=== PATIENT | female | born 1980 | race American Indian/Alaskan Native ===

== ENCOUNTER 2017-07-24 15:09 | Emergency (ER) | payer SELFPAY ==
[2017-07-24 15:21] VITALS: BP 121/77
[2017-07-24 15:58] LABS: Bacteria,Urine 1+ /HPF (Negative); Bilirubin,Urine NEG (Negative); Blood,Urine MOD (Negative); Ketones,Urine 80 mg/dL (Negative); Leukocyte Esterase,Urine TR (Negative); Mucus,Urine 2+ /HPF; Nitrite,Urine NEG (Negative); Urobilinogen,Urine < 2.0 mg/dL (<2.0)
[2017-07-24 16:10] LABS: Basophils % (Auto) 0.6 % (0.0-1.8); Eosinophils % (Auto) 0.3 % (0.0-4.3); Hematocrit 39.3 % (30.3-42.9); Hemoglobin 13.4 gm/dl (10.1-14.3); Mean Corpuscular HGB Conc 34 % (30-34); Mean Corpuscular Hemoglobin 29 pg (28-32); Mean Corpuscular Volume 86 fl (79-97); Platelet Count 243 K/mm3 (140-440); Red Blood Count 4.58 M/mm3 (3.65-5.03); Red Cell Distribution Width 13.6 % (13.2-15.2); White Blood Count 8.2 K/mm3 (4.5-11.0)
--- NOTE | 2017-07-24 18:20 | Ultrasound Report ---
FINAL REPORT EXAM: US OB TRANSVAGINAL HISTORY: VAGINAL BLEEDING TECHNIQUE: Endovaginal ultrasound was performed and the multiple grayscale sonographic images were obtained of the uterus and adnexa PRIORS: None. FINDINGS: There is a gestational sac in the uterus. Yolk sac is identified. There is a pole that measures 4.2 millimeters in length. heart rate was detected at 109 beats per minute. Right and left ovary measure approximately 2.3 x 1.9 x 1.9 centimeters and 2.8 x 1.8 x 2.8 centimeters, respectively. There is a heterogeneous focus a right ovary that measures approximately 18 x 12 x 12 millimeters. There is a subtle hypoechoic focus in left ovary that measures 15 x 11 x 13 millimeters. Small amount of free fluid is noted in the pelvis. IMPRESSION: 1. Viable single intrauterine with estimated gestational age 6 weeks 1 day. Estimated due date 03/18/2018. Continued follow-up is recommended. 2. Heterogeneous focus in right ovary may represent corpus luteum. Hypoechoic focus in the left ovary may represent complex cyst. 3. Small amount of free fluid is noted. This is a nonspecific finding. It may be physiologic.
--- NOTE | 2017-07-24 18:21 | Ultrasound Report ---
FINAL REPORT EXAM: US OB \T\lt; = 14 WEEKS FETUS HISTORY: VAGINAL BLEEDING TECHNIQUE: Transabdominal pelvic ultrasound was performed in multiple grayscale sonographic images were obtained of uterus and adnexa PRIORS: Endovaginal ultrasound 07/24/2017. FINDINGS: Uterus measures approximately 10.4 x 5.1 x 7.1 centimeters. There is a hypoechoic focus in the endometrium. Ovaries were not visualized during the exam. IMPRESSION: 1. Nonvisualization of the ovaries. 2. Hypoechoic area in the endometrium is consistent with gestational sac. Please refer to report from endovaginal ultrasound from 07/24/2017.
== END 2017-07-24 19:50 | disposition left against medical advice (07) ==
LOC: ED 15:09
DX: Z53.21 Procedure and treatment not carried out due to patient leaving prior to being seen by health care provider (principal)
CPT/HCPCS: 36415; 76801; 76817; 81001; 84702; 85025; 86850; 86900; 86901

== ENCOUNTER 2019-02-26 10:15 | Outpatient (CLI) | payer MEDICAID | END 2019-02-26 13:37 | disposition home or self-care (01) | LOC: LAB 10:15 → TRG 13:18 → LAB 13:37 | PROVIDERS: ATTEND Nurse Practitioner Women's Health | DX: O26.893 Other specified pregnancy related conditions, third trimester (principal); Z67.41 Type O blood, Rh negative; O09.523 Supervision of elderly multigravida, third trimester; Z3A.28 28 weeks gestation of pregnancy | CPT/HCPCS: 86850; 86900; 86901; 96372; J2790 ==

== ENCOUNTER 2019-05-11 00:49 | Inpatient (IN) | payer MEDICAID ==
[2019-05-11] MEDS ORDERED: AMPICILLIN/NS 2 GM/100 ML 2 GM/100 ML BAG IV ONE ×2 (01:11→01:20)
[2019-05-11] MEDS ORDERED: LACTATED RINGERS 1,000 ML ONE (01:11)
[2019-05-11] MEDS ORDERED: MINERAL OIL PO PRN (01:20)
[2019-05-11] MEDS ORDERED: BRETHINE SUB-Q PRN (01:20)
[2019-05-11] MEDS ORDERED: BRETHINE IVP PRN (01:20)
[2019-05-11] MEDS ORDERED: XYLOCAINE 2% INFILTRATI ONE (01:20)
[2019-05-11 01:59] LABS: Hematocrit 39.1 % (30.3-42.9); Hemoglobin 13.3 gm/dl (10.1-14.3); Mean Corpuscular HGB Conc 34 % (30-34); Mean Corpuscular Volume 88 fl (79-97); Platelet Count 161 K/mm3 (140-440); Red Blood Count 4.42 M/mm3 (3.65-5.03); Red Cell Distribution Width 14.1 % (13.2-15.2)
[2019-05-11] MEDS ORDERED: PITOCin/NS 20 UNIT/1000ML DRIP 20 UNITS/1,000 ML BAG IV SCH (02:00)
[2019-05-11] MEDS ORDERED: LACTATED RINGERS 1,000 ML IV SCH (02:00)
[2019-05-11] MEDS ORDERED: SUBLIMAZE ONE (02:01)
[2019-05-11] MEDS ORDERED: TUCKS PAD TP PRN (02:12)
[2019-05-11] MEDS ORDERED: PERCOCET 5/325 PO PRN (02:12)
[2019-05-11] MEDS ORDERED: LANSINOH TP PRN (02:12)
[2019-05-11] MEDS ORDERED: PHENERGAN PR PRN (02:12)
[2019-05-11] MEDS ORDERED: BENADRYL PO PRN (02:12)
[2019-05-11] MEDS ORDERED: MILK OF MAGNESIA PO PRN (02:12)
[2019-05-11] MEDS ORDERED: NORCO 5/325 PO PRN (02:12)
[2019-05-11] MEDS ORDERED: DULCOLAX PR PRN (02:12)
[2019-05-11] MEDS ORDERED: PHENERGAN PO PRN (02:12)
[2019-05-11] MEDS ORDERED: TORADOL IV PRN (02:12)
[2019-05-11] MEDS ORDERED: ZOFRAN IV PRN (02:12)
[2019-05-11] MEDS ORDERED: TYLENOL PO PRN (02:12)
--- NOTE | 2019-05-11 02:21 | History and Physical Report ---
History of Present Illness Date of examination: 05/11/19 Date of admission: 05/11/19 01:06 Chief complaint: contractions History of present illness: This is a 38 yo at 39 weeks came in for labor and noted that she was anterior lip. Patient admitted in labor. GBS+. Patient is a AMA seen by MFM. HX of pprom and ptd and has been followed by MFM. 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 NIPT low risk male. Past History Past Medical History: no pertinent history Past Surgical History: no surgical history Family/Genetic History: diabetes, hypertension Social history: single. denies: smoking, alcohol abuse, prescription drug abuse - Obstetrical History Expected Date of Delivery: 05/21/19 Actual Gestation: 38 Week(s) 4 Day(s) : 4 Para: 3 Hx # Term Pregnancies: 1 Number of Pregnancies: 1 Spontaneous Abortions: 1 Induced : 0 Number of Living Children: 2 Medications and Allergies Allergies Allergy/AdvReac Type Severity Reaction Status Date / Time latex Allergy Itching, Verified 05/11/19 01:12 HIVES, BURNING SENSATION Home Medications Medication Instructions Recorded Confirmed Last Taken Type Ferrous Sulfate [Feosol 325 MG tab] 325 mg PO BID #30 tablet 05/11/19 Unknown Rx Ibuprofen [Motrin] 600 mg PO Q8H PRN #30 tablet 05/11/19 Unknown Rx Active Meds: Active Medications Acetaminophen (Tylenol) 650 mg PO Q4H PRN PRN Reason: Pain MILD(1-3)/Fever >100.5/LAN Acetaminophen/Hydrocodone Bitart ([place] 5/325) 2 each PO Q6H PRN PRN Reason: Pain, Moderate (4-6) Bisacodyl (Dulcolax) 10 mg MI BID PRN PRN Reason: Constipation Diphenhydramine HCl (Benadryl) 25 mg PO Q6H PRN PRN Reason: Itching Diphtheria/Tetanus/Acell Pertussis (Boostrix) 0.5 ml IM .ONCE ONE Stop: 05/12/19 02:13 Docusate Sodium (Colace) 100 mg PO BID BRITNI Ephedrine Sulfate (Ephedrine Sulfate) 10 mg IV Q2M PRN PRN Reason: Hypotension Oxytocin/Sodium Chloride (Pitocin/Ns 20 Unit/1000ml Drip) 20 units in 1,000 mls @ 125 mls/hr IV DIRECT BRITNI Lactated Ringer's (Lactated Ringers) 1,000 mls @ 125 mls/hr IV DIRECT BRITNI Ampicillin Sodium (Ampicillin/Ns 2 Gm/100 Ml) 2 gm in 100 mls @ 100 mls/hr IV ONCE ONE; Protocol Stop: 05/11/19 02:19 Ampicillin Sodium (Ampicillin/Ns 1 Gm/50 Ml) 1 gm in 50 mls @ 100 mls/hr IV Q4HR BRITNI; Protocol Oxytocin/Sodium Chloride (Pitocin/Ns 20 Unit/1000ml Drip) 20 units in 1,000 mls @ 250 mls/hr IV DIRECT BRITNI Ibuprofen (Ibuprofen) 600 mg PO Q6H BRITNI Ketorolac Tromethamine (Toradol) 30 mg IV Q6H PRN PRN Reason: Pain, Moderate (4-6) Stop: 05/16/19 02:11 Magnesium Hydroxide (Milk Of Magnesia) 30 ml PO HS PRN PRN Reason: Constipation Measles/Mumps/Rubella Vaccine Live (M-M-R Ii Vaccine) 0.5 ml SUB-Q .ONCE ONE Stop: 05/12/19 02:13 Mineral Oil (Mineral Oil) 30 ml PO QHS PRN PRN Reason: Constipation Multi-Ingredient Ointment (Lansinoh) 1 applic TP PRN PRN PRN Reason: Sore Nipples Multivitamins/Iron/Calcium ( Vitamin) 1 each PO QDAY BRITNI Ondansetron HCl (Zofran) 4 mg IV Q8H PRN PRN Reason: Nausea And Vomiting Oxycodone/Acetaminophen (Percocet 5/325) 1 tab PO Q6H PRN PRN Reason: Pain, Moderate (4-6) Promethazine HCl (Phenergan) 25 mg MI Q6H PRN PRN Reason: Nausea And Vomiting Promethazine HCl (Phenergan) 25 mg PO Q6H PRN PRN Reason: Nausea And Vomiting Sodium Chloride (Sodium Chloride Flush Syringe 10 Ml) 10 ml IV PRN NR Terbutaline Sulfate (Brethine) 0.25 mg SUB-Q ONCE PRN PRN Reason: Hyperstimulation/Hypertonicity Terbutaline Sulfate (Brethine) 0.25 mg IVP ONCE PRN PRN Reason: Hyperstimulation/Hypertonicity Witch [place]/Glycerin (Tucks Pad) 1 each TP PRN PRN PRN Reason: Hemorrhoid/cleansing/soothing Review of Systems All systems: negative - Vital Signs Vital signs: Vital Signs Pulse BP 90 144/80 05/11/19 00:54 05/11/19 00:54 Temp Pulse Resp BP Pulse Ox 90 144/80 05/11/19 00:54 05/11/19 00:54 - Physical Exam Breasts: Positive: normal Cardiovascular: Regular rate, Normal S1 Lungs: Positive: Clear to auscultation, Normal air movement Abdomen: Positive: normal appearance, soft, normal bowel sounds. Negative: distention, tenderness, guarding Genitourinary (Female): Positive: normal external genitalia, normal perenium Vulva: both: normal Vagina: Positive: normal moisture Uterus: Positive: normal size, normal contour Anus/Rectum: Positive: normal perianal skin Extremities: Positive: normal Deep Tendon Reflex Grade: Normal +2 - Obstetrical FHR: category 1 Cervical Dilatation: 9 Cervical Effacement Percentage: 100 station: -1 Uterine Contraction Pattern: Regular Uterine Tone Measurement Phase: Contraction Uterine Contraction Intensity: Strong/Firm Results Result Diagrams: 05/11/19 01:15 All other labs normal. Assessment and Plan A/P IUP 38 weeks active labor GBS + abx started IVF and labs expect vaginal delivery
--- NOTE | 2019-05-11 02:30 | Procedure Note ---
OB Delivery Note - Delivery Date of Delivery: 05/11/19 Surgeon: TOREY BARNETT Estimated blood loss: 200cc - Vaginal Delivery presentation: vertex Delivery position: OA Intrapartum events: meconium, precipitous labor- <3hr Delivery induction: none Delivery augmentation: rupture of membranes Delivery monitor: external FHT, external uterine Route of delivery: Delivery placenta: spontaneous Delivery cord: 3 umbilical vessels Episiotomy: none Delivery laceration: 1st degree Delivery repair: vicryl Anesthesia: none Delivery comments: Patient was noted to be bulging membranes. AROM with meconium. Pediatrics called. Patient to commenced to pushing a viable male infant at 0150 with apgars 8 and 9. Placenta delivered 0156 intact with three vessel cord at 0156. A laceration noted to be a first degree. weight of the baby 7 pounds 11oz. EBL 200 cc. Patient tolerated procedure well. - Infant A at 1 minute: 8 at 5 minutes: 9 Infant Gender: Male (7 pounds 11 oz)
[2019-05-11] MEDS: PITOCin/NS 20 UNIT/1000ML DRIP 20 UNITS/1,000 ML BAG IV SCH ×2 (02:58→03:58)
[2019-05-11] MEDS ORDERED: SODIUM CHLORIDE FLUSH SYRINGE 10 ML IV PRN (03:00)
[2019-05-11] MEDS ORDERED: SUBLIMAZE IV ONE (03:15)
[2019-05-11] MEDS: IBUPROFEN PO SCH ×4 (04:59→23:18)
[2019-05-11] MEDS ORDERED: AMPICILLIN/NS 1 GM/50 ML 1 GM/50 ML BAG IV SCH (05:20)
[2019-05-11] MEDS: PRENATAL VITAMIN PO SCH (09:06)
[2019-05-11] MEDS: COLACE PO SCH ×2 (09:07→23:19)
[2019-05-11 14:26] LABS: Hematocrit 34.1 % (30.3-42.9); Hemoglobin 11.5 gm/dl (10.1-14.3)
[2019-05-12] MEDS ORDERED: M-M-R II VACCINE SUB-Q ONE (02:12)
[2019-05-12] MEDS: IBUPROFEN PO SCH ×2 (05:45→12:33)
[2019-05-12] MEDS ORDERED: BOOSTRIX IM ONE (06:00)
--- NOTE | 2019-05-12 08:02 | Progress Note ---
Assessment and Plan Vital signs and labs stable Ok for discharge to home tomorrow Return to office in 6 weeks for pp visit with Mirena insertion Subjective - Subjective Date of service: 05/12/19 Principal diagnosis: Interval history: Pt is PPD1 s/p on 05/11 at 0150. She had a precipitous and sustained a first degree laceration, repaired. EBL was 200mL. Patient reports: appetite normal, voiding normally, pain well controlled, ambulating normally [facility]: doing well, bottle feeding (per mother's choice) Objective - Vital Signs Latest vital signs: Vital Signs Temp Pulse Resp BP BP Pulse Ox 05/12/19 05:45 18 05/12/19 00:35 98.3 F 72 20 125/73 99 05/11/19 23:18 20 05/11/19 16:27 98.3 F 76 18 119/67 99 05/11/19 11:44 98.6 F 67 18 127/65 98 Intake and Output 05/11/19 05/11/19 05/12/19 15:59 23:59 07:59 Intake Total 1320 960 360 Output Total 450 Balance 870 960 360 Intake: Oral 840 480 Intake, Free Water 480 480 360 Output: Urine 450 Void 450 Other: Total, Intake Amount 360 480 Total, Output Amount 450 # Voids Void 1 1 2 - Exam Breasts: Present: deferred Cardiovascular: Present: Regular rate, Normal S1, Normal S2, No murmurs Lungs: Present: Clear to auscultation, Normal air movement Abdomen: Present: normal appearance, soft Uterus: Present: normal, firm, fundal height below umbilicus Extremities: Present: normal
--- NOTE | 2019-05-12 08:04 | Discharge Summary ---
Providers - Providers Date of Admission: 05/11/19 01:06 Date of discharge: 05/13/19 Attending physician: TOREY BARNETT MD Primary care physician: TOREY BARNETT MD Hospitalization Reason for admission: active labor Delivery: Episiotomy: none Laceration: 1st degree Other procedures: none complications: none Discharge diagnosis: IUP at term delivered Condition at discharge: Good Disposition: [id number]-01 TO HOME OR SELFCARE Plan - Discharge Medications Prescriptions: Ferrous Sulfate [Feosol 325 MG tab] 325 mg PO BID #30 tablet Ibuprofen [Motrin] 600 mg PO Q8H PRN #30 tablet PRN Reason: Pain - Provider Discharge Summary Activity: routine, no sex for 6 weeks, no heavy lifting 4 weeks, no strenuous exercise Diet: routine Instructions: routine Additional instructions: [] Smoking cessation referral if applicable(refer to patient education folder for contact #) [] Refer to [facility] Book[facility] Call your doctor immediately for: * Fever > 100.5 * Heavy vaginal bleeding ( >1 pad per hour) * Severe persistent headache * Shortness of breath * Reddened, hot, painful area to leg or breast * Drainage or odor from incision. * Keep incision clean and dry at all times and follow doctor's instructions regarding bathing/showering - Follow up plan Follow up: TOREY BARNETT MD [Primary Care Provider] - 6 Weeks (Please call to schedule appointment)
[2019-05-12] MEDS: COLACE PO SCH (12:36)
[2019-05-12] MEDS: PRENATAL VITAMIN PO SCH (12:37)
[2019-05-12 17:07] VITALS: BP 145/82
== END 2019-05-12 17:00 | disposition home or self-care (01) | DRG 774 ==
LOC: TRG 00:49 → LD 01:06 → OB 04:05
PROVIDERS: ADMIT Obstetrics & Gynecology; ATTEND Obstetrics & Gynecology
PROC: 10E0XZZ Delivery of Products of Conception, External Approach (ICD-10-PCS; principal; 2019-05-11)
PROC: 0HQ9XZZ Repair Perineum Skin, External Approach (ICD-10-PCS; 2019-05-11)
PROC: 3E0234Z Introduction of Serum, Toxoid and Vaccine into Muscle, Percutaneous Approach (ICD-10-PCS; 2019-05-11)
DX: O99.824 Streptococcus B carrier state complicating childbirth (principal); O98.32 Other infections with a predominantly sexual mode of transmission complicating childbirth; O77.0 Labor and delivery complicated by meconium in amniotic fluid; O62.3 Precipitate labor; O70.0 First degree perineal laceration during delivery; A60.00 Herpesviral infection of urogenital system, unspecified; Z3A.38 38 weeks gestation of pregnancy; Z37.0 Single live birth
CPT/HCPCS: 36415; 85014; 85018; 85027; 85461; 86592; 86850; 86900; 86901; G0378; J0290; J2590; J2790; J3010; J7120